=== PATIENT | male | born 1945 | race Caucasian/White ===

== ENCOUNTER 2016-09-10 12:33 | Inpatient (IN) | payer OTHER ==
[~2016-09-10] VITALS: Ht 172.7 cm; Wt 60.8 kg
--- NOTE | 2016-09-10 12:33 | NUR ---
Pt sent by Dr Goel from dialysis ctr for fever, no dialysis today. Placed on monitor. Awaiting md order.
--- NOTE | 2016-09-10 12:45 | NUR ---
rfa #18 iv access. blood sample collected sent to lab
[2016-09-10 13:11] LABS: BASOPHILS # (AUTO) 0.1 /CMM (0.0-0.2); BASOPHILS % (AUTO) 0.7 % (0.0-2.0); EOSINOPHILS # (AUTO) 0.1 /CMM (0.0-0.7); EOSINOPHILS % (AUTO) 0.6 % (0.0-6.0); HEMATOCRIT 32 % (39-51); HEMOGLOBIN 10.9 g/dL (13.5-17.5); LYMPHOCYTES # (AUTO) 0.4 /CMM (0.8-4.8); MEAN CORPUSCULAR HEMOGLOBIN 33 PG (26.0-33.0); MEAN CORPUSCULAR HGB CONC 34 g/dl (31.0-36.0); MEAN CORPUSCULAR VOLUME 98 fL (80-96); MONOCYTES # (AUTO) 0.4 /CMM (0.1-1.30); MONOCYTES % (AUTO) 3.8 % (2.0-12.0); NEUTROPHILS # (AUTO) 9.4 /CMM (1.8-8.9); NEUTROPHILS % (AUTO) 90.9 % (43.0-81.0); PLATELET COUNT (AUTO) 149 /CMM (150-450); RED BLOOD CELL COUNT(AUTO) 3.28 MIL/uL (4.5-6.0); WHITE BLOOD COUNT (AUTO) 10.4 K/uL (4.3-11.0)
[2016-09-10] MEDS ORDERED: LOSA100T15 PO (13:23)
[2016-09-10] MEDS ORDERED: SEVE800T8 PO (13:23)
[2016-09-10] MEDS ORDERED: METO50TA3 PO (13:23)
[2016-09-10] MEDS ORDERED: NIFE90TA37 PO (13:23)
[2016-09-10 13:29] LABS: INR 1.05 (0.87-1.13); PROTHROMBIN TIME 10.9 SECS (9.5-12.7); TROPONIN I 0.061 ng/mL (0.00-0.056)
[2016-09-10 13:32] LABS: ALBUMIN 3.3 g/dL (3.4-5.0); BILIRUBIN,DIRECT 0.2 mg/dL (0.0-0.2); BILIRUBIN,TOTAL 0.9 mg/dL (0.2-1.0); CALCIUM, SERUM 8.4 mg/dL (8.5-10.1); LACTIC ACID 1.6 mmol/L (0.4-2.0); POTASSIUM 5.1 mmol/L (3.5-5.1)
[2016-09-10 13:35] LABS: CREATININE 12.7 mg/dL (0.6-1.3)
--- NOTE | 2016-09-10 13:42 | NUR ---
PAGED DR MAGUE ABURTO CLINICAL PARTNER GREY GOODS MARKER FOR DR NYDIA BARNETT
[2016-09-10] MEDS ORDERED: IV SET PRIMARY PUMP SET 1 EA INFUS.SET MC ONE ×2 (13:47→21:19)
[2016-09-10] MEDS ORDERED: PIPERACILLIN /TAZOBACTAM 3.375 G VIAL IV ONE (13:47)
--- NOTE | 2016-09-10 13:58 | NUR ---
REPORT GIVEN TO EUN ENRIQUEZ FOR MS [id number]
[2016-09-10] MEDS ORDERED: VANCOMYCIN 1 GM in IV D5W 250 ML IV ONE ×2 (14:00→21:00)
[2016-09-10] MEDS ORDERED: PIPERACILLIN /TAZOBACTAM 3.375 G in IV D5W 50 ML IV ONE (14:00)
--- NOTE | 2016-09-10 14:00 | NUR ---
Dr Bermeo at bedside for eval.
--- NOTE | 2016-09-10 14:04 | NUR ---
pt still not able to provide urine sample dialysis pt aware.
--- NOTE | 2016-09-10 14:14 | NUR ---
TRANSFER PT TO [facility] VIA OFE BECKETT
--- NOTE | 2016-09-10 14:23 | NUR ---
IV ABX VANCO AND ZOSYN REASSESSMENT NOT DONE TRANSFUSING DURING TRANSFER TO FLOOR
[2016-09-10 14:40] VITALS: BP 136/83
--- NOTE | 2016-09-10 14:40 | NUR ---
telegraph service clerkadmissions advisor notes Admitted a 70 years old male patient. Patient is alert and oriented x4, verbally responsive and able to make needs known. IV intact and patent with ATB from ER still infusing. Perm cath on the RUC dressing intact. AV fistula on the left forearm. Informed Dr cotton regarding admission orders, diet and med recon and made aware. Vital signs checked and recorded. Patient is ambulatory. Kept patient clean and comfortable in bed, call light with in patient reach, will continue to monitor accordingly. On tele monitor SR heart rate of 71. No complaint of pain or discomfort at this time. on Room air and tolerated well.
[2016-09-10 16:00] VITALS: BP 136/63
--- NOTE | 2016-09-10 19:12 | NUR ---
ms rn closing notes All needs provided, attended, and anticipated. Kept patient clean and comfortable in bed, call light with in patient reach, will continue to monitor accordingly. Endorsed to next shift RN to continue care.
--- NOTE | 2016-09-10 19:27 | NUR ---
MS RN OPENING NOTES: PATIENT IN BED, AOX4, ON ROOM AIR, BREATHING EVEN AND UNLABORED. APPEARS CALM AND IN NO DISTRESS, STATES THAT HE WANTS TO SLEEP. PIV OVER RFA G 18 INTACT AND PATENT TO FLUSH. PATIENT ALSO HAS A RCW PERMACATH WITH CLEAN AND INTACT DRESSING. PROVIDED FOR COMFORT AND SAFETY. CALL LIGHT WITHIN REACH. WILL CONT TO MONITOR.
--- NOTE | 2016-09-10 19:50 | NUR ---
RN NOTES: PATIENT'S TEMP : 102.9, BP ELEVATED 175/82. IN BED, COOLING MEASURES INITIATED.
[2016-09-10 20:00] VITALS: BP 175/82
--- NOTE | 2016-09-10 20:00 | NUR ---
RN NOTES: PAGED VIVIAN, DR MAGUE ABURTO FOR PATIENT'S TEMP OF 102.9 AND ELEVATED BP AT 175/82. AWAITING CALL BACK.
[2016-09-10] MEDS ORDERED: hydrALAZINE HCL 50 MG TABLET PO PRN (20:30)
--- NOTE | 2016-09-10 20:45 | NUR ---
RN NOTES: DR PAGED DR MAGUE ABURTO AGAIN TO CONFIRM ADMITTING ORDERS (TO [facility]), NEW ORDERS TO RESTART HOME MEDICATIONS GIVEN, AND AM LABS FOR CBC, BMP, MG, PHOS. NOTED AND CARRIED OUT.
[2016-09-10] MEDS ORDERED: FEE PK DOSING 1 MIN EA MC ONE (20:51)
[2016-09-10] MEDS: ACETAMINOPHEN 325 MG TABLET PO PRN (20:53)
[2016-09-10] MEDS ORDERED: VANCOMYCIN 500 MG in IV D5W 100 ML IV PRN (21:00)
--- NOTE | 2016-09-10 21:00 | NUR ---
RN NOTES: PRN TYLENOL 650 MG PO AND HYDRALAZINE 50 MG PO PRN GIVEN FOR ELEVATED TEMP AND BP. ICE PACKS APPLIED WELL. WILL CONT TO MONITOR.
[2016-09-10] MEDS ORDERED: IV NS 0.9% 250 ML IV ONE (21:19)
[2016-09-10] MEDS ORDERED: SECONDARY IV SET 1 EA INFUS.SET MC ONE (21:19)
[2016-09-10] MEDS: PIPERACILLIN /TAZOBACTAM 2.25 G in IV D5W 50 ML IV SCH (21:50)
[2016-09-10 23:00] VITALS: BP 137/65
--- NOTE | 2016-09-10 23:00 | NUR ---
RN NOTES: PATIENT NOTED TO HAVE URINATED ON THE BED, HOWEVER, HE CLAIMS THAT HE IS CONTINENT, AND THAT HE JUST WOKE UP. EXPLAINED TO HIM THAT URINE SAMPLE MUST BE COLLECTED. VS RECHECKED: TEMP: 98.1, BP: 137/65, HR: 79, O2 SAT: 94% ON ROOM AIR. BEDBATH RENDERED, BUT PATIENT INSISTED ON WEARING SOILED UNDERWEAR.
[2016-09-11 03:00] VITALS: BP 135/62
--- NOTE | 2016-09-11 03:09 | NUR ---
RN NOTES: RECHECKED VS: TEMP: 97.8, BP: 135/62. PATIENT APPEARS CALM AND IN NO DISTRESS. NOTED SOME BLOODY RESIDUE ON PERMACATH DRESSING. REPLACED CENTRAL LINE DRESSING BY STERILE TECHNIQUE. WILL CONT TO MONITOR.
[2016-09-11] MEDS: PIPERACILLIN /TAZOBACTAM 2.25 G in IV D5W 50 ML IV SCH ×3 (04:57→21:07)
--- NOTE | 2016-09-11 06:20 | NUR ---
MS RN CLOSING NOTES: PATIENT IN BED, AOX4, ON ROOM AIR, BREATHING EVEN AND UNLABORED. APPEARS CALM AND IN NO DISTRESS. PIV OVER RFA G18 INTACT AND PATENT TO FLUSH. PATIENT HAS RCW PERMACATH WITH CLEAN INTACT DRESSING. L UPPER ARM AV FISTULA POSITIVE FOR THRILLS. DUE MEDS GIVEN. MONITORED FOR FEVER AND OTHER SIGNS OF INFECTION, VS REMAINS STABLE AT THIS TIME. PROVIDED FOR COMFORT AND SAFETY. BED IN LOWEST AND LOCKED POSITION, SIDERAILS UP X3. WILL ENDORSE TO AM RN FOR SUMI.
--- NOTE | 2016-09-11 07:54 | NUR ---
MS RN INITIAL NOTE REPORT RECEIVED AT THE BEDSIDE. PATIENT IS RESTING COMFORTABLY IN BED. NO SOB OR DISTRESS NOTED AT THIS TIME. PATIENT DENIES PAIN. BED IN A LOW POSITION, CALL LIGHT WITHIN PATIENT REACH. WILL CONTINUE TO MONITOR.
[2016-09-11 07:59] LABS: CALCIUM, SERUM 7.9 mg/dL (8.5-10.1); MAGNESIUM 2.2 mg/dL (1.8-2.4); PHOSPHORUS 4.3 mg/dL (2.5-4.9); POTASSIUM 4.9 mmol/L (3.5-5.1)
[2016-09-11 08:00] VITALS: BP 145/66
[2016-09-11 08:03] LABS: CREATININE 11.8 mg/dL (0.6-1.3)
[2016-09-11 08:07] LABS: BASOPHILS % (AUTO) 0.7 % (0.0-2.0); EOSINOPHILS % (AUTO) 0.3 % (0.0-6.0); HEMATOCRIT 34 % (39-51); HEMOGLOBIN 11.2 g/dL (13.5-17.5); LYMPHOCYTES # (AUTO) 0.3 /CMM (0.8-4.8); MEAN CORPUSCULAR HEMOGLOBIN 32 PG (26.0-33.0); MEAN CORPUSCULAR HGB CONC 33 g/dl (31.0-36.0); MEAN CORPUSCULAR VOLUME 96 fL (80-96); MONOCYTES # (AUTO) 0.4 /CMM (0.1-1.30); MONOCYTES % (AUTO) 5.7 % (2.0-12.0); NEUTROPHILS # (AUTO) 5.7 /CMM (1.8-8.9); NEUTROPHILS % (AUTO) 88.3 % (43.0-81.0); PLATELET COUNT (AUTO) 144 /CMM (150-450); RED BLOOD CELL COUNT(AUTO) 3.52 MIL/uL (4.5-6.0); WHITE BLOOD COUNT (AUTO) 6.4 K/uL (4.3-11.0)
--- NOTE | 2016-09-11 08:17 | NUR ---
MS RN NOTES CALLED AND SPOKE TO AUGUSTA THE DIALYSIS NURSE. HE STATES THAT THE PATIENT WILL BE HAVING DIALYSIS TODAY AND THAT BP MEDS SHOULD BE HELD.
[2016-09-11] MEDS: METOPROLOL TARTRATE 50 MG TABLET PO SCH ×2 (08:21→16:25)
[2016-09-11] MEDS: LOSARTAN POTASSIUM 50 MG TABLET PO SCH (08:21)
[2016-09-11] MEDS: NIFEdipine XL (30MG) 30 MG TAB PO SCH (08:22)
[2016-09-11] MEDS: SEVELAMER CARBONATE 800 MG TABLET PO SCH ×3 (08:31→16:32)
[2016-09-11] MEDS: ACETAMINOPHEN 325 MG TABLET PO PRN (14:21)
--- NOTE | 2016-09-11 15:20 | NUR ---
MS RN NOTES CALLED DR GANNON'S OFFICE. PATIENT STATES THAT HE HAS 8/10 PAIN IN THE LOWER LEGS AND BACK. ALL THAT IS AVAILABLE FOR THE PATIENT RIGHT NOW IS TYLENOL WHICH WAS ALREADY GIVEN. LEFT A MESSAGE FOR THE MD. WILL FOLLOW UP.
[2016-09-11 16:00] VITALS: BP 104/50
--- NOTE | 2016-09-11 16:26 | NUR ---
MS RN NOTES DID NOT ADMIN LOPRESSOR DUE TO LOW BP AND PATIENT DUE FOR DIALYSIS.
[2016-09-11] MEDS: LACTOBACILLUS RHAMNOSUS GG 1 EACH CAP.SPRINK PO SCH (16:32)
[2016-09-11] MEDS ORDERED: VANCOMYCIN 1 GM in IV D5W 250 ML IV ONE (17:00)
--- NOTE | 2016-09-11 17:15 | NUR ---
MS HAQ NOTES RECEIVED A CALL FROM PATIENT INSURANCE. PATIENT NEEDS A VASCULAR CONSULT. WILL CALL MD. Addendum: 09/11/16 at 1723 by ADAM BLOOM RN CALLED NEPHROLOGY GROUP. DR BRAR IS BINDERY OPERATOR. OFFICE STATES THEY HAVE PAGED THE DOCTOR. AWAITING RETURN CALL.
--- NOTE | 2016-09-11 18:08 | NUR ---
MS RN NOTES CALLED THE NEPHROLOGY GROUP AGAIN AND TRIED TO REACH THE GOVERNMENT DOCUMENTS LIBRARIAN MD WHO IS NOW DR FLORES. WAITING FOR CALL BACK FROM .
[2016-09-11] MEDS ORDERED: SECONDARY IV SET 1 EA INFUS.SET MC ONE (18:51)
--- NOTE | 2016-09-11 19:15 | NUR ---
MS RN CLOSING NOTES WAS UNABLE TO REACH NEPHROLOGY GROUP FOR ORDERS. PATIENT IN BED, NO SOB OR DISTRESS, DENIES PAIN. PATIENT IS FINISHING HD. WARE TESTER TO HANG PRN VANCO. BED IN A LOW POSITION, CALL LIGHT WITHIN PATIENT REACH. ENDORSED TO MILDRED FOR SUMI, AND FOLLOW UP WITH DR FLORES ON PAIN MEDICATIONS AND VASCULAR CONSULT.
--- NOTE | 2016-09-11 19:25 | NUR ---
RN NOTE; RECEIVED PT IN BED AWAKE AND ALERT W/ FAMILY AT THE BED SIDE. HD IN PROCESS USING BAL SHUNT. PER HD NURSE BAL SHUNT FUNCTIONAL W/ NO COMPLICATIONS. AWAITING FOR HD TO BE COMPLETED TO ADMINISTER VANCO. DENIED ANY PAIN OR DISCOMFORT. R CHEST CATH IN PLACE AND INTACT. NEEDS ATTENDED. CALL LIGHT WITHIN REACH. WILL CONT TO MONITOR
[2016-09-11 20:00] VITALS: BP 162/68
[2016-09-11 20:56] VITALS: BP 144/65
[2016-09-11] MEDS: ATORVASTATIN 10 MG TABLET PO SCH (21:05)
[2016-09-12] MEDS: PIPERACILLIN /TAZOBACTAM 2.25 G in IV D5W 50 ML IV SCH ×3 (05:05→20:31)
--- NOTE | 2016-09-12 06:37 | NUR ---
RN NOTE; PT IN BED SLEEPING ARISES EASILY. BREATHING EVENLY. NO SOB. NO DISTRESS. SKIN WARM AND DRY. BAL SHUNT INTACT W/ NO BLEEDING . NO C/O PAIN OR DISCOMFORT. NEEDS ATTENDED . ASSISTED W/ ADLS. CALL LIGHT WITHIN REACH, WILL CONT TO MONITOR AND WILL ENDORSE TO AM SHIFT FOR SUMI,
[2016-09-12 07:38] LABS: BASOPHILS % (AUTO) 0.2 % (0.0-2.0); EOSINOPHILS % (AUTO) 0.8 % (0.0-6.0); HEMATOCRIT 32 % (39-51); HEMOGLOBIN 11.3 g/dL (13.5-17.5); LYMPHOCYTES # (AUTO) 0.4 /CMM (0.8-4.8); LYMPHOCYTES % (AUTO) 10.3 % (20.0-44.0); MEAN CORPUSCULAR HEMOGLOBIN 36 PG (26.0-33.0); MEAN CORPUSCULAR HGB CONC 35 g/dl (31.0-36.0); MEAN CORPUSCULAR VOLUME 103 fL (80-96); MONOCYTES # (AUTO) 0.4 /CMM (0.1-1.30); MONOCYTES % (AUTO) 9.6 % (2.0-12.0); NEUTROPHILS # (AUTO) 3.2 /CMM (1.8-8.9); NEUTROPHILS % (AUTO) 79.1 % (43.0-81.0); PLATELET COUNT (AUTO) 134 /CMM (150-450); RDW COEFFICIENT OF VARIATION 13.1 (11.5-15.0); RED BLOOD CELL COUNT(AUTO) 3.15 MIL/uL (4.5-6.0); WHITE BLOOD COUNT (AUTO) 4.1 K/uL (4.3-11.0)
[2016-09-12 08:00] VITALS: BP_SYST 123; BP_SYST 149; BP_DIAS 64; BP_DIAS 69
[2016-09-12 08:10] LABS: ALBUMIN 2.6 g/dL (3.4-5.0); BILIRUBIN,TOTAL 0.6 mg/dL (0.2-1.0); CALCIUM, SERUM 7.8 mg/dL (8.5-10.1); MAGNESIUM 2.2 mg/dL (1.8-2.4); PHOSPHORUS 3.7 mg/dL (2.5-4.9); POTASSIUM 4.4 mmol/L (3.5-5.1); TOTAL PROTEIN, SERUM 6.3 g/dL (6.4-8.2)
--- NOTE | 2016-09-12 08:10 | NUR ---
RN Notes Still sleeping, easily arousable. No complain of pain. On RA saturating at 97% with no SOB. Afebrile. With AV shunt on left upper arm with palpable thrill noted. no bleeding. With HD access on right chest wall with dressing intact. with IV access on right forearm gg 18 patent and intact. no complain at this time.
[2016-09-12 08:11] LABS: CREATININE 10.5 mg/dL (0.6-1.3)
[2016-09-12] MEDS: ASPIRIN 81 MG TAB.CHEW PO SCH (09:21)
[2016-09-12] MEDS: LACTOBACILLUS RHAMNOSUS GG 1 EACH CAP.SPRINK PO SCH ×2 (09:21→16:19)
[2016-09-12] MEDS: LOSARTAN POTASSIUM 50 MG TABLET PO SCH (09:21)
[2016-09-12] MEDS: METOPROLOL TARTRATE 50 MG TABLET PO SCH ×2 (09:21→16:20)
[2016-09-12] MEDS: NIFEdipine XL (30MG) 30 MG TAB PO SCH (09:22)
[2016-09-12] MEDS: SEVELAMER CARBONATE 800 MG TABLET PO SCH ×5 (09:22→20:32)
--- NOTE | 2016-09-12 15:39 | NUR ---
MS RN Notes Spoke with Dr Bueno with verbal order to do procedure consent for Perma cath removal and prepare lidocaine 1 % noted and carried out.
[2016-09-12 16:00] VITALS: BP 153/68
[2016-09-12] MEDS ORDERED: LIDOCAINE 1% INJ 50 ML MDV IJ ONE (16:00)
--- NOTE | 2016-09-12 16:10 | NUR ---
RN Notes Verified patient's understanding on the risk and benefit of removing perma cath as explained by DR Bueno, verbalized understanding. Consent for the procedure secured.
[2016-09-12] MEDS: ACETAMINOPHEN 325 MG TABLET PO PRN (16:20)
--- NOTE | 2016-09-12 17:10 | NUR ---
RN Notes Permacath removed by Dr Bueno with pressure dressing applied to right upper chest wall. no bleeding noted. will cont to monitor.
--- NOTE | 2016-09-12 18:43 | NUR ---
RN Notes Resting well with no complain at this time. With dressing on right upper chest wall s/p removal of perma cath, dry and intact. Needs anticipated. no untoward symptom noted. will endorse to police shift commander nurse for the continuity of care.
--- NOTE | 2016-09-12 19:23 | NUR ---
MS RN OPENING NOTES: PATIENT IN BED, AOX4, ON ROOM AIR, BREATHING EVEN AND UNLABORED. DENIES PAIN AT THIS TIME, BUT STATES THAT HE STILL FEELS WEAK AND NEEDS REST. ENCOURAGED PATIENT TO EAT DINNER. PATIENT HAS CLEAN AND INTACT DRESSING OVER RCW. PIV OVER RFA G 18 INTACT AND PATENT TO FLUSH. BAL AV FISTULA WITH PALPABLE THRILL. PROVIDED FOR COMFORT AND SAFETY. WILL CONT TO MONITOR.
[2016-09-12 20:00] VITALS: BP 101/63
--- NOTE | 2016-09-12 20:32 | NUR ---
RN NOTES: RENVELA 2400 MG ONLY GIVEN NOW PATIENT HAS JUST FINISHED EATING.
[2016-09-12] MEDS ORDERED: SECONDARY IV SET 1 EA INFUS.SET MC ONE (20:33)
[2016-09-12 20:35] VITALS: BP 101/63
[2016-09-12] MEDS: ATORVASTATIN 10 MG TABLET PO SCH (21:43)
[2016-09-13 04:00] VITALS: BP 105/55
[2016-09-13] MEDS: PIPERACILLIN /TAZOBACTAM 2.25 G in IV D5W 50 ML IV SCH ×3 (04:20→22:14)
--- NOTE | 2016-09-13 06:51 | NUR ---
MS RN CLOSING NOTES: PATIENT IN BED, AOX4, ASLEEP BUT EASILY AWAKENED BY NAME BEING CALLED. ON ROOM AIR, BREATHING EVEN AND UNLABORED. PIV OVER RFA G18 INTACT AND PATENT TO FLUSH. DUE MEDS GIVEN. PROVIDED FOR COMFORT AND SAFETY. NO ACUTE CHANGE IN CONDITION NOTED THROUGH NIGHT. PROVIDED FOR COMFORT AND SAFETY. BED IN LOWEST AND LOCKED POSITION, SIDERAILS UP X3. WILL ENDORSE TO AM RN FOR SUMI.
[2016-09-13 08:00] VITALS: BP 108/52
--- NOTE | 2016-09-13 08:20 | NUR ---
MS/RN OPENING NOTE PT. IS SITTING UP IN BED EATING BREAKFAST. PT. IS A&OX4. NO S/S OF DISTRESS, NO SOB, BREATHING EVENLY AND UNLABORED. PT. HAS A WALKER NEAR BEDSIDE. SIGN ON WALL FOR NO BLOOD PRESSURE, AND BLOOD DRAWS ON LEFT ARM. PT. BED IS IN LOW POSITION, 2 SIDE RAILS UP, CALL LIGHT WITHIN REACH, AND ALL NEEDS ARE ATTENDED TO.
[2016-09-13 08:48] LABS: POTASSIUM 4.4 mmol/L (3.5-5.1)
[2016-09-13] MEDS: METOPROLOL TARTRATE 50 MG TABLET PO SCH ×2 (09:00→16:37)
[2016-09-13] MEDS: LOSARTAN POTASSIUM 50 MG TABLET PO SCH (09:00)
[2016-09-13] MEDS: NIFEdipine XL (30MG) 30 MG TAB PO SCH (09:00)
[2016-09-13 09:22] LABS: CREATININE 12.5 mg/dL (0.6-1.3)
[2016-09-13] MEDS: ASPIRIN 81 MG TAB.CHEW PO SCH (09:22)
[2016-09-13] MEDS: LACTOBACILLUS RHAMNOSUS GG 1 EACH CAP.SPRINK PO SCH ×2 (09:22→16:37)
[2016-09-13] MEDS: SEVELAMER CARBONATE 800 MG TABLET PO SCH ×2 (13:48→16:37)
[2016-09-13 16:00] VITALS: BP 121/62
--- NOTE | 2016-09-13 16:45 | NUR ---
MS/RN DAILY WEIGHT PT. WEIGHT ON ADMISSION WAS 141.44LBS. REASSESSED, PT. WEIGHT IS 132.6 LBS, AFTER BED WAS ZEROED OUT WITH PT. OUT OF BED.
--- NOTE | 2016-09-13 19:50 | NUR ---
MS/RN CLOSING NOTE PT. IS LYING IN BED AWAKE, A&OX4. NO S/S OF DISTRESS, NO SOB, BREATHING EVENLY, AND UNLABORED. PT. LAST DAILY WEIGHT WAS 132.6 LBS. HEMODIALYSIS WAS PROVIDED TODAY AT 0900, 1.5 LITERS REMOVED WITHOUT COMPLICATIONS, USING THE LEFT UPPER ARM AV FISTULA. PT. HAS A WALKER NEAR BEDSIDE. IV FLUIDS RUNNING TO KEEP VEIN OPEN AT 5ML/HR ON RIGHT FOREARM. RENAL SOURCE BOOST SHAKE ORDERED FOR SUPPLEMENTATION PER DIETARY CONSULT. PT. REQUESTED TO HAVE DOOR CLOSED WHILE HE IS IN THE ROOM. BED IS IN LOW POSITION, 2 SIDE RAILS UP, CALL LIGHT WITHIN REACH, AND ALL NEEDS WERE TO ATTENDED TO. WILL ENDORSE REPORT TO SHEAR SCRAPMAN NURSE.
--- NOTE | 2016-09-13 19:55 | NUR ---
MS/PROSPECTING DRILLER; RECEIVED PT REPORTS FROM DAY SHIFT RN . AT THIS TIME PT IN BED AWAKKE BUT QUIET, BREATHING NON LABORED. HL ON RFA INTACT. AV SHUNT ON BAL. NO MENTION OF PAIN. BED ON LOWER POSITION AND LOCKED FOR SAFETY. UPPER PART OF BED SIDE RAILS ARE UP FOR SAFETY. CONTINUE TO MONITOR . CALL LIGHT WITHIN REACH.
[2016-09-13 20:00] VITALS: BP 124/59
[2016-09-13] MEDS ORDERED: SECONDARY IV SET 1 EA INFUS.SET MC ONE (22:07)
[2016-09-13] MEDS: ATORVASTATIN 10 MG TABLET PO SCH (22:08)
[2016-09-14] MEDS: PIPERACILLIN /TAZOBACTAM 2.25 G in IV D5W 50 ML IV SCH (04:15)
[2016-09-14 06:53] LABS: CALCIUM, SERUM 7.6 mg/dL (8.5-10.1); POTASSIUM 4.6 mmol/L (3.5-5.1)
[2016-09-14 07:00] LABS: CREATININE 11.2 mg/dL (0.6-1.3)
--- NOTE | 2016-09-14 07:00 | NUR ---
MS/OUTBOUND TELEMARKETER; SLEPT FAIRLY. DENIES PAIN. BREATHING NON LABORED. CONTINUE TO MONITOR. CALL LIGHT WITHIN REACH. WILL ENDORSE TO THE DAY SHIFT NURSE.
--- NOTE | 2016-09-14 07:30 | NUR ---
MS/RN OPENING NOTE PT. IS AWAKE IN BED. A&OX4. NO S/S OF DISTRESS, NO SOB, BREATHING EVENLY AND UNLABORED. PT. HAS A WALKER NEAR BEDSIDE. SIGN ON WALL FOR NO BLOOD PRESSURE, AND BLOOD DRAWS ON LEFT ARM. PT. BED IS IN LOW POSITION, 2 SIDE RAILS UP, CALL LIGHT WITHIN REACH, AND ALL NEEDS ARE ATTENDED TO.
[2016-09-14 08:00] VITALS: BP 147/63
[2016-09-14] MEDS ORDERED: RENAL NOVASOURCE (8OZ) 1 EA BOX PO SCH (09:00)
[2016-09-14] MEDS: METOPROLOL TARTRATE 50 MG TABLET PO SCH (09:57)
[2016-09-14] MEDS: ASPIRIN 81 MG TAB.CHEW PO SCH (09:57)
[2016-09-14] MEDS: LACTOBACILLUS RHAMNOSUS GG 1 EACH CAP.SPRINK PO SCH (09:58)
[2016-09-14] MEDS: LOSARTAN POTASSIUM 50 MG TABLET PO SCH (09:58)
[2016-09-14] MEDS: NIFEdipine XL (30MG) 30 MG TAB PO SCH (09:59)
[2016-09-14] MEDS: SEVELAMER CARBONATE 800 MG TABLET PO SCH (09:59)
--- NOTE | 2016-09-14 14:59 | NUR ---
MS/WELL DRILLER PT. LEFT THE HOSPITAL WITH FRIEND ASH QUINTEROS. WAS IN STABLE CONDITION. PROVIDED DISCHARGE INSTRUCTIONS, AND LIST OF MEDICATIONS TO TAKE HOME. NEXT HEMODIALYSIS VISIT WILL BE IN TOMORROW ARRANGED BY DR. FERGUSON, PT. VERBALIZED UNDERSTANDING.
[2016-09-14 16:00] VITALS: BP 128/73
== END 2016-09-14 15:00 | disposition home or self-care (01) | DRG 280 ==
LOC: ER 12:36 → MED 14:21
PROVIDERS: ADMIT Internal Medicine Nephrology; ATTEND Internal Medicine Nephrology
PROC: 02PYX3Z Removal of Infusion Device from Great Vessel, External Approach (ICD-10-PCS; principal; 2016-09-12)
DX: T80.211A Bloodstream infection due to central venous catheter, initial encounter (principal); I21.4 Non-ST elevation (NSTEMI) myocardial infarction; N18.6 End stage renal disease; I50.33 Acute on chronic diastolic (congestive) heart failure; A41.02 Sepsis due to Methicillin resistant Staphylococcus aureus; I13.2 Hypertensive heart and chronic kidney disease with heart failure and with stage 5 chronic kidney disease, or end stage renal disease; I50.9 Heart failure, unspecified; Z99.2 Dependence on renal dialysis; Y84.1 Kidney dialysis as the cause of abnormal reaction of the patient, or of later complication, without mention of misadventure at the time of the procedure; Y92.129 Unspecified place in nursing home as the place of occurrence of the external cause; M47.814 Spondylosis without myelopathy or radiculopathy, thoracic region; D64.9 Anemia, unspecified
CPT/HCPCS: 36415; 71010-TC; 80048-TC; 80053-TC; 80076-TC; 80202-TC; 83605-TC; 83735-TC; 84100-TC; 84484-TC; 85025-TC; 85730-TC; 87040-TC; 87081-TC; 90935-TC; 93307-TC; A4606; A6402; J2543; J3370; J3490; J7050; J7060; Z7610

== ENCOUNTER 2017-05-09 09:12 | Inpatient (IN) | payer OTHER ==
[~2017-05-09] VITALS: Ht 170.2 cm; Wt 59.9 kg
[~2017-05-09 09:12] MED LIST: LOSA100T15 PO; METO50TA16 PO; NIFE90TA37 PO; SEVE800T8 PO
[2017-05-09 10:08] LABS: BASOPHILS # (AUTO) 0.2 /CMM (0.0-0.2); BASOPHILS % (AUTO) 2.2 % (0.0-2.0); EOSINOPHILS # (AUTO) 0.1 /CMM (0.0-0.7); EOSINOPHILS % (AUTO) 1.7 % (0.0-6.0); HEMATOCRIT 30 % (39-51); HEMOGLOBIN 10.5 g/dL (13.5-17.5); LYMPHOCYTES # (AUTO) 0.5 /CMM (0.8-4.8); LYMPHOCYTES % (AUTO) 6.3 % (20.0-44.0); MEAN CORPUSCULAR HEMOGLOBIN 34 PG (26.0-33.0); MEAN CORPUSCULAR HGB CONC 35 g/dl (31.0-36.0); MEAN CORPUSCULAR VOLUME 95 fL (80-96); MONOCYTES # (AUTO) 0.5 /CMM (0.1-1.30); MONOCYTES % (AUTO) 6.4 % (2.0-12.0); NEUTROPHILS # (AUTO) 6.2 /CMM (1.8-8.9); NEUTROPHILS % (AUTO) 83.4 % (43.0-81.0); PLATELET COUNT (AUTO) 174 /CMM (150-450); RDW COEFFICIENT OF VARIATION 12.6 (11.5-15.0); RED BLOOD CELL COUNT(AUTO) 3.12 MIL/uL (4.5-6.0); WHITE BLOOD COUNT (AUTO) 7.5 K/uL (4.3-11.0)
[2017-05-09 10:18] LABS: CARBON DIOXIDE 29 mmol/L (21-32); CHLORIDE 100 mmol/L (98-107); GLUCOSE 144 mg/dL (74-106); POTASSIUM 4.9 mmol/L (3.5-5.1); SODIUM SERUM 136 mmol/L (136-145); UREA NITROGEN, BLOOD 50 mg/dL (7-18)
[2017-05-09 10:23] LABS: CREATININE 8.1 mg/dL (0.6-1.3)
[2017-05-09 10:24] LABS: ALANINE AMINOTRANSFERASE 17 U/L (12-78); ALBUMIN 3.6 g/dL (3.4-5.0); ALKALINE PHOSPHATASE 114 U/L (46-116); ASPARTATE AMINOTRANSFERASE 23 U/L (15-37); BILIRUBIN,DIRECT 0.1 mg/dL (0.0-0.2); BILIRUBIN,TOTAL 0.5 mg/dL (0.2-1.0); TOTAL PROTEIN, SERUM 7.7 g/dL (6.4-8.2)
[2017-05-09 10:26] LABS: TROPONIN I 0.054 ng/mL (0.00-0.056)
[2017-05-09 10:40] LABS: PROTHROMBIN TIME 10.4 SECS (9.5-12.7)
[2017-05-09 10:56] LABS: APPEARANCE,URINE CLEAR (CLEAR); BILIRUBIN,URINE NEGATIVE (NEGATIVE); BLOOD, URINE 1+ Ery/uL (NEGATIVE); COLOR,URINE YELLOW (YELLOW); KETONES,URINE NEGATIVE (NEGATIVE); LEUKOCYTE ESTERASE ,URINE NEGATIVE (NEGATIVE); NITRITE, URINE NEGATIVE (NEGATIVE); PH,URINE 8.5 (5.0-8.0); PROTEIN,URINE 2+ mg/dl (NEGATIVE); UGLUCOSE NEGATIVE (NEGATIVE); UROBILINOGEN,URINE 0.2 EU/dL (0.2)
[2017-05-09 10:58] LABS: BACTERIA,URINE Rare /HPF (None Seen); SQUAMOUS EPITHELIAL CELL,UR Few /HPF (None Seen); WBC,URINE 0-2 /HPF (0-3)
[2017-05-09] MEDS ORDERED: LEVOFLOXACIN 750 MG /D5W 150ML 150 ML IV ONE (11:22)
[2017-05-09] MEDS ORDERED: LEVOFLOXACIN 750 MG /D5W 150ML PIGGYBACK IV ONE (11:30)
[2017-05-09 11:45] VITALS: BP 169/89
[2017-05-09] MEDS ORDERED: MAGNESIUM HYDROXIDE 30 ML UDC PO PRN (14:00)
[2017-05-09] MEDS ORDERED: Z GUARD REMEDY 2 OZ OINT TP PRN (14:00)
[2017-05-09] MEDS ORDERED: ZOLPIDEM TARTRATE 5 MG TABLET PO PRN (14:00)
[2017-05-09] MEDS ORDERED: ACETAMINOPHEN 325 MG TABLET PO PRN (14:00)
[2017-05-09] MEDS ORDERED: MAG HYDROX/AL HYDROX/SIMETH 30 ML UDC PO PRN (14:00)
[2017-05-09] MEDS ORDERED: MORPHINE SULFATE INJ 2 MG/ML DISP.SYRIN IV PRN (14:00)
[2017-05-09] MEDS ORDERED: LEVOFLOXACIN 750 MG /D5W 150ML 750 MG in PREMIX 1 EA IV ONE (14:01)
[2017-05-09 15:42] LABS: IRON, SERUM 22 ug/dl (50-175); TOTAL IRON BINDING CAPACITY 224 ug/dl (250-450)
[2017-05-09] MEDS: HYDROCODONE/APAP 5/325MG 1 EACH TABLET PO PRN (15:58)
[2017-05-09 16:13] VITALS: BP 176/79
[2017-05-09 20:27] VITALS: BP 166/75
[2017-05-09] MEDS ORDERED: MORPHINE SULFATE INJ 4 MG/ML DISP.SYRIN ONE (21:30)
[2017-05-09] MEDS ORDERED: NIFEdipine XL (30MG) 30 MG TAB PO ONE (21:50)
[2017-05-09] MEDS ORDERED: NIFEdipine XL 60 MG TAB PO ONE (21:50)
[2017-05-09] MEDS ORDERED: METOPROLOL TARTRATE 50 MG TABLET ONE (21:51)
[2017-05-09] MEDS ORDERED: LOSARTAN POTASSIUM 50 MG TABLET ONE (21:52)
[2017-05-09] MEDS: NIFEdipine XL (30MG) 30 MG TAB PO SCH (21:54)
[2017-05-09] MEDS: METOPROLOL TARTRATE 50 MG TABLET PO SCH (21:54)
[2017-05-09] MEDS: LOSARTAN POTASSIUM 50 MG TABLET PO SCH (21:55)
[2017-05-10] VITALS (7 sets, daily range): BP systolic 96–181; BP diastolic 52–86
[2017-05-10] MEDS ORDERED: CLONIDINE HCL 0.1 MG TABLET ONE (00:35)
[2017-05-10] MEDS: CLONIDINE HCL 0.1 MG TABLET PO PRN (00:37)
[2017-05-10 08:15] LABS: BASOPHILS % (AUTO) 0.4 % (0.0-2.0); HEMATOCRIT 26 % (39-51); HEMOGLOBIN 9.6 g/dL (13.5-17.5); LYMPHOCYTES # (AUTO) 0.6 /CMM (0.8-4.8); LYMPHOCYTES % (AUTO) 9.6 % (20.0-44.0); MEAN CORPUSCULAR HEMOGLOBIN 40 PG (26.0-33.0); MEAN CORPUSCULAR HGB CONC 37 g/dl (31.0-36.0); MEAN CORPUSCULAR VOLUME 106 fL (80-96); MONOCYTES # (AUTO) 0.3 /CMM (0.1-1.30); MONOCYTES % (AUTO) 5.4 % (2.0-12.0); NEUTROPHILS % (AUTO) 84.6 % (43.0-81.0); PLATELET COUNT (AUTO) 136 /CMM (150-450); RDW COEFFICIENT OF VARIATION 13.1 (11.5-15.0); RED BLOOD CELL COUNT(AUTO) 2.44 MIL/uL (4.5-6.0); WHITE BLOOD COUNT (AUTO) 5.9 K/uL (4.3-11.0)
[2017-05-10 08:43] LABS: ALANINE AMINOTRANSFERASE 15 U/L (12-78); ALKALINE PHOSPHATASE 90 U/L (46-116); ASPARTATE AMINOTRANSFERASE 22 U/L (15-37); BILIRUBIN,TOTAL 0.4 mg/dL (0.2-1.0); CALCIUM, SERUM 7.4 mg/dL (8.5-10.1); CARBON DIOXIDE 26 mmol/L (21-32); CHLORIDE 99 mmol/L (98-107); GLUCOSE 141 mg/dL (74-106); MAGNESIUM 2.1 mg/dL (1.8-2.4); SODIUM SERUM 134 mmol/L (136-145); TOTAL PROTEIN, SERUM 6.6 g/dL (6.4-8.2); UREA NITROGEN, BLOOD 67 mg/dL (7-18)
[2017-05-10 08:48] LABS: POTASSIUM 6.4 mmol/L (3.5-5.1)
[2017-05-10 08:50] LABS: CHOLESTEROL 147 mg/dL (<200); CREATINE KINASE MB 0.3 ng/mL (0-3.6); HDL CHOLESTEROL 66 mg/dL (40-60); LDL 62 mg/dL (0-99); TRIGLYCERIDES 79 mg/dL (30-150)
[2017-05-10] MEDS: LOSARTAN POTASSIUM 50 MG TABLET PO SCH ×2 (09:00→14:52)
[2017-05-10] MEDS ORDERED: INSULIN REGULAR, HUMAN 100 UNIT/ML 10 ML VIAL SQ ONE (09:00)
[2017-05-10] MEDS ORDERED: DEXTROSE 50%-WATER 50 ML DISP.SYRIN IVP ONE (09:00)
[2017-05-10] MEDS ORDERED: Calcium Gluconate 0.465 MEQ/ML VIAL IV ONE (09:00)
[2017-05-10] MEDS: METOPROLOL TARTRATE 50 MG TABLET PO SCH ×2 (09:00→21:00)
[2017-05-10] MEDS: NIFEdipine XL (30MG) 30 MG TAB PO SCH (09:00)
[2017-05-10 09:49] LABS: BAND % (MANUAL) 1 % (0.0-5.0); LYMPHOCYTES % (MANUAL) 8 % (16-48); MONOCYTES % (MANUAL) 6 % (0-11.0); NEUTROPHILS % (MANUAL) 85 (42-76)
[2017-05-10] MEDS ORDERED: ALBUTEROL FS 2.5 MG/0.5 ML VIAL.NEB NEB ONE (09:51)
[2017-05-10] MEDS ORDERED: Calcium Gluconate 1GM/10ML 4.65 MEQ in IV D5W 50 ML IV ONE (10:00)
[2017-05-10] MEDS ORDERED: METOPROLOL TARTRATE 50 MG TABLET PO ONE (14:30)
[2017-05-10] MEDS ORDERED: ASPIRIN 81 MG TAB.CHEW PO ONE (14:30)
[2017-05-10] MEDS ORDERED: AMIODARONE 900 MG in IV D5W 482 ML IV PRN (17:30)
[2017-05-10] MEDS ORDERED: AMIODARONE 150 MG in IV D5W 100 ML IV ONE (17:30)
[2017-05-10] MEDS: SEVELAMER CARBONATE 800 MG TABLET PO SCH (18:50)
[2017-05-10] MEDS ORDERED: LEVOFLOXACIN 500 MG /D5W 100ML 500 MG in PREMIX 1 EA IV SCH (19:00)
[2017-05-10] MEDS ORDERED: IV NS 0.9% 250 ML IV PRN (21:30)
[2017-05-11] VITALS: BP_SYST 100; BP_SYST 126; BP_DIAS 59
[2017-05-11 04:00] VITALS: BP 132/63
[2017-05-11 07:20] LABS: BASOPHILS % (AUTO) 0.2 % (0.0-2.0); EOSINOPHILS # (AUTO) 0.1 /CMM (0.0-0.7); EOSINOPHILS % (AUTO) 1.5 % (0.0-6.0); HEMATOCRIT 29 % (39-51); HEMOGLOBIN 9.8 g/dL (13.5-17.5); LYMPHOCYTES # (AUTO) 0.9 /CMM (0.8-4.8); LYMPHOCYTES % (AUTO) 18.5 % (20.0-44.0); MEAN CORPUSCULAR HEMOGLOBIN 33 PG (26.0-33.0); MEAN CORPUSCULAR HGB CONC 34 g/dl (31.0-36.0); MEAN CORPUSCULAR VOLUME 95 fL (80-96); MONOCYTES # (AUTO) 0.4 /CMM (0.1-1.30); MONOCYTES % (AUTO) 7.1 % (2.0-12.0); NEUTROPHILS # (AUTO) 3.6 /CMM (1.8-8.9); NEUTROPHILS % (AUTO) 72.7 % (43.0-81.0); PLATELET COUNT (AUTO) 129 /CMM (150-450); RDW COEFFICIENT OF VARIATION 12.9 (11.5-15.0); RED BLOOD CELL COUNT(AUTO) 3.02 MIL/uL (4.5-6.0)
[2017-05-11 07:29] LABS: CALCIUM, SERUM 7.4 mg/dL (8.5-10.1); CARBON DIOXIDE 29 mmol/L (21-32); CHLORIDE 93 mmol/L (98-107); GLUCOSE 97 mg/dL (74-106); MAGNESIUM 2.1 mg/dL (1.8-2.4); PHOSPHORUS 4.8 mg/dL (2.5-4.9); POTASSIUM 4.5 mmol/L (3.5-5.1); SODIUM SERUM 133 mmol/L (136-145); UREA NITROGEN, BLOOD 55 mg/dL (7-18)
[2017-05-11] MEDS: HYDROCODONE/APAP 5/325MG 1 EACH TABLET PO PRN (07:53)
[2017-05-11 08:00] VITALS: BP 150/68
[2017-05-11] MEDS: METOPROLOL TARTRATE 50 MG TABLET PO SCH ×2 (09:00→21:00)
[2017-05-11] MEDS: LOSARTAN POTASSIUM 50 MG TABLET PO SCH ×2 (09:00)
[2017-05-11] MEDS: NIFEdipine XL (30MG) 30 MG TAB PO SCH ×2 (09:00→09:40)
[2017-05-11] MEDS: SEVELAMER CARBONATE 800 MG TABLET PO SCH ×3 (09:38→18:00)
[2017-05-11] MEDS: ISOSORBIDE DINITRATE (20MG) 20 MG TABLET PO SCH ×2 (11:45→17:00)
[2017-05-11 11:49] LABS: THYROID STIMULATING HORMONE 0.933 uIU/mL (0.358-3.74)
[2017-05-11 12:00] VITALS: BP 139/63
[2017-05-11] MEDS: CEFTRIAXONE 1 G in IV D5W 50 ML IV SCH (13:33)
[2017-05-11] MEDS: hydrALAZINE HCL 50 MG TABLET PO SCH ×2 (13:36→17:00)
[2017-05-11] MEDS: SOD FERRIC GLUC 125 MG in IV NS 0.9% 100 ML IV SCH (15:57)
[2017-05-11 16:00] VITALS: BP 101/50
[2017-05-11] MEDS: AMIODARONE HCL 200 MG TABLET PO SCH (18:18)
[2017-05-11 20:00] VITALS: BP 103/50
[2017-05-12] VITALS: BP 102/48
[2017-05-12 04:00] VITALS: BP 108/52
[2017-05-12 07:30] LABS: CALCIUM, SERUM 7.1 mg/dL (8.5-10.1); CARBON DIOXIDE 28 mmol/L (21-32); CHLORIDE 90 mmol/L (98-107); GLUCOSE 107 mg/dL (74-106); MAGNESIUM 2.3 mg/dL (1.8-2.4); PHOSPHORUS 4.6 mg/dL (2.5-4.9); POTASSIUM 4.6 mmol/L (3.5-5.1); SODIUM SERUM 126 mmol/L (136-145)
[2017-05-12 07:47] LABS: CREATININE 10.3 mg/dL (0.6-1.3); UREA NITROGEN, BLOOD 80 mg/dL (7-18)
[2017-05-12 08:00] VITALS: BP 106/58
[2017-05-12 08:46] LABS: BASOPHILS % (AUTO) 0.4 % (0.0-2.0); EOSINOPHILS # (AUTO) 0.1 /CMM (0.0-0.7); EOSINOPHILS % (AUTO) 2.1 % (0.0-6.0); HEMATOCRIT 28 % (39-51); HEMOGLOBIN 9.6 g/dL (13.5-17.5); LYMPHOCYTES # (AUTO) 0.8 /CMM (0.8-4.8); LYMPHOCYTES % (AUTO) 16.1 % (20.0-44.0); MEAN CORPUSCULAR HEMOGLOBIN 32 PG (26.0-33.0); MEAN CORPUSCULAR HGB CONC 34 g/dl (31.0-36.0); MEAN CORPUSCULAR VOLUME 94 fL (80-96); MONOCYTES # (AUTO) 0.5 /CMM (0.1-1.30); MONOCYTES % (AUTO) 9.2 % (2.0-12.0); NEUTROPHILS # (AUTO) 3.6 /CMM (1.8-8.9); NEUTROPHILS % (AUTO) 72.2 % (43.0-81.0); PLATELET COUNT (AUTO) 135 /CMM (150-450); RDW COEFFICIENT OF VARIATION 12.9 (11.5-15.0); RED BLOOD CELL COUNT(AUTO) 3.03 MIL/uL (4.5-6.0); WHITE BLOOD COUNT (AUTO) 4.9 K/uL (4.3-11.0)
[2017-05-12] MEDS: ISOSORBIDE DINITRATE (20MG) 20 MG TABLET PO SCH ×2 (08:59→16:55)
[2017-05-12] MEDS: SEVELAMER CARBONATE 800 MG TABLET PO SCH ×3 (08:59→17:00)
[2017-05-12] MEDS: AMIODARONE HCL 200 MG TABLET PO SCH ×2 (08:59→16:54)
[2017-05-12] MEDS: hydrALAZINE HCL 50 MG TABLET PO SCH ×3 (08:59→16:54)
[2017-05-12] MEDS: NIFEdipine XL (30MG) 30 MG TAB PO SCH (09:00)
[2017-05-12] MEDS: METOPROLOL TARTRATE 50 MG TABLET PO SCH ×2 (09:00→22:08)
[2017-05-12 12:00] VITALS: BP 122/53
[2017-05-12] MEDS: CEFTRIAXONE 1 G in IV D5W 50 ML IV SCH (12:46)
[2017-05-12] MEDS: SOD FERRIC GLUC 125 MG in IV NS 0.9% 100 ML IV SCH (14:26)
[2017-05-12 16:00] VITALS: BP 140/64
[2017-05-12 20:00] VITALS: BP 117/57
[2017-05-13] VITALS (9 sets, daily range): BP systolic 103–190; BP diastolic 54–76
[2017-05-13 07:55] LABS: BASOPHILS % (AUTO) 0.4 % (0.0-2.0); EOSINOPHILS # (AUTO) 0.1 /CMM (0.0-0.7); EOSINOPHILS % (AUTO) 1.6 % (0.0-6.0); HEMATOCRIT 26 % (39-51); HEMOGLOBIN 9.6 g/dL (13.5-17.5); LYMPHOCYTES # (AUTO) 0.9 /CMM (0.8-4.8); LYMPHOCYTES % (AUTO) 18.6 % (20.0-44.0); MEAN CORPUSCULAR HEMOGLOBIN 40 PG (26.0-33.0); MEAN CORPUSCULAR HGB CONC 37 g/dl (31.0-36.0); MEAN CORPUSCULAR VOLUME 108 fL (80-96); MONOCYTES # (AUTO) 0.5 /CMM (0.1-1.30); MONOCYTES % (AUTO) 11.4 % (2.0-12.0); NEUTROPHILS # (AUTO) 3.2 /CMM (1.8-8.9); PLATELET COUNT (AUTO) 147 /CMM (150-450); RED BLOOD CELL COUNT(AUTO) 2.42 MIL/uL (4.5-6.0); WHITE BLOOD COUNT (AUTO) 4.7 K/uL (4.3-11.0)
[2017-05-13 08:24] LABS: CALCIUM, SERUM 6.6 mg/dL (8.5-10.1); CARBON DIOXIDE 25 mmol/L (21-32); CHLORIDE 93 mmol/L (98-107); GLUCOSE 95 mg/dL (74-106); MAGNESIUM 2.3 mg/dL (1.8-2.4); POTASSIUM 4.9 mmol/L (3.5-5.1); SODIUM SERUM 131 mmol/L (136-145)
[2017-05-13 08:29] LABS: CREATININE 12.2 mg/dL (0.6-1.3); UREA NITROGEN, BLOOD 95 mg/dL (7-18)
[2017-05-13] MEDS: AMIODARONE HCL 200 MG TABLET PO SCH ×2 (09:00→17:26)
[2017-05-13] MEDS: METOPROLOL TARTRATE 50 MG TABLET PO SCH ×3 (09:00→22:06)
[2017-05-13] MEDS: hydrALAZINE HCL 50 MG TABLET PO SCH ×3 (09:00→17:25)
[2017-05-13] MEDS: NIFEdipine XL (30MG) 30 MG TAB PO SCH ×2 (09:00→14:00)
[2017-05-13] MEDS: SEVELAMER CARBONATE 800 MG TABLET PO SCH ×3 (09:00→17:25)
[2017-05-13] MEDS: ISOSORBIDE DINITRATE (20MG) 20 MG TABLET PO SCH ×2 (09:00→17:00)
[2017-05-13 10:17] LABS: BAND % (MANUAL) 3 % (0.0-5.0); EOSINOPHILS % (MANUAL) 1 % (0-4); LYMPHOCYTES % (MANUAL) 19 % (16-48); MONOCYTES % (MANUAL) 10 % (0-11.0); NEUTROPHILS % (MANUAL) 67 (42-76)
[2017-05-13] MEDS: CLONIDINE HCL 0.1 MG TABLET PO PRN (12:27)
[2017-05-13] MEDS ORDERED: ISOS20TA8 PO (13:34)
[2017-05-13] MEDS ORDERED: APIX2.5T PO (13:34)
[2017-05-13] MEDS ORDERED: HYDR-4077 PO (13:34)
[2017-05-13] MEDS ORDERED: AMIO200T7 PO (13:34)
[2017-05-13] MEDS ORDERED: SULF1TAB48 PO (13:34)
[2017-05-13] MEDS: CEFTRIAXONE 1 G in IV D5W 50 ML IV SCH (14:02)
[2017-05-13] MEDS: APIXABAN 2.5 MG TABLET PO SCH (14:02)
[2017-05-13] MEDS ORDERED: IV NS 0.9% 500 ML IV ONE (14:30)
[2017-05-13] MEDS: SOD FERRIC GLUC 125 MG in IV NS 0.9% 100 ML IV SCH (16:15)
[2017-05-14 04:00] VITALS: BP 99/55
[2017-05-14 08:00] VITALS: BP 94/45
[2017-05-14] MEDS: SEVELAMER CARBONATE 800 MG TABLET PO SCH ×4 (09:00→17:00)
[2017-05-14] MEDS: NIFEdipine XL (30MG) 30 MG TAB PO SCH ×2 (09:00→09:08)
[2017-05-14] MEDS: hydrALAZINE HCL 50 MG TABLET PO SCH ×4 (09:00→17:00)
[2017-05-14] MEDS: AMIODARONE HCL 200 MG TABLET PO SCH ×3 (09:00→17:00)
[2017-05-14] MEDS: APIXABAN 2.5 MG TABLET PO SCH ×3 (09:00→18:24)
[2017-05-14] MEDS: METOPROLOL TARTRATE 50 MG TABLET PO SCH ×3 (09:00→21:57)
[2017-05-14] MEDS: ISOSORBIDE DINITRATE (20MG) 20 MG TABLET PO SCH ×3 (09:00→17:00)
[2017-05-14] MEDS: CEFTRIAXONE 1 G in IV D5W 50 ML IV SCH (12:41)
[2017-05-14] MEDS: SOD FERRIC GLUC 125 MG in IV NS 0.9% 100 ML IV SCH (14:40)
[2017-05-14 16:00] VITALS: BP 119/52
[2017-05-14] MEDS: RENAL NOVASOURCE (8OZ) 1 EA BOX PO SCH (18:24)
[2017-05-14 20:00] VITALS: BP 129/59
[2017-05-15 04:00] VITALS: BP 141/60
[2017-05-15 08:00] VITALS: BP 154/60
[2017-05-15] MEDS: RENAL NOVASOURCE (8OZ) 1 EA BOX PO SCH ×2 (08:00→17:48)
[2017-05-15] MEDS: SEVELAMER CARBONATE 800 MG TABLET PO SCH ×3 (09:00→17:46)
[2017-05-15] MEDS: APIXABAN 2.5 MG TABLET PO SCH ×2 (09:00→17:46)
[2017-05-15] MEDS: NIFEdipine XL (30MG) 30 MG TAB PO SCH (09:00)
[2017-05-15] MEDS: AMIODARONE HCL 200 MG TABLET PO SCH ×2 (09:00→17:00)
[2017-05-15] MEDS: hydrALAZINE HCL 50 MG TABLET PO SCH ×3 (09:00→17:00)
[2017-05-15] MEDS: ISOSORBIDE DINITRATE (20MG) 20 MG TABLET PO SCH ×2 (09:00→17:00)
[2017-05-15] MEDS: METOPROLOL TARTRATE 50 MG TABLET PO SCH ×2 (09:00→21:00)
[2017-05-15] MEDS: ONDANSETRON HCL/PF 4 MG/2 ML VIAL IVP PRN (11:48)
[2017-05-15] MEDS: CEFTRIAXONE 1 G in IV D5W 50 ML IV SCH (13:00)
[2017-05-15 16:00] VITALS: BP 142/55
[2017-05-15] MEDS: SOD FERRIC GLUC 125 MG in IV NS 0.9% 100 ML IV SCH (17:47)
[2017-05-15 20:00] VITALS: BP 166/68
[2017-05-16 04:00] VITALS: BP 160/66
[2017-05-16 08:00] VITALS: BP 175/74
[2017-05-16] MEDS: RENAL NOVASOURCE (8OZ) 1 EA BOX PO SCH ×2 (08:00→17:28)
[2017-05-16] MEDS: AMIODARONE HCL 200 MG TABLET PO SCH ×2 (08:53→17:00)
[2017-05-16] MEDS: SEVELAMER CARBONATE 800 MG TABLET PO SCH ×3 (08:53→17:29)
[2017-05-16] MEDS: hydrALAZINE HCL 50 MG TABLET PO SCH ×2 (08:53→12:31)
[2017-05-16] MEDS: METOPROLOL TARTRATE 50 MG TABLET PO SCH (08:53)
[2017-05-16] MEDS: ISOSORBIDE DINITRATE (20MG) 20 MG TABLET PO SCH ×2 (08:54→17:00)
[2017-05-16] MEDS: NIFEdipine XL (30MG) 30 MG TAB PO SCH (08:54)
[2017-05-16] MEDS: APIXABAN 2.5 MG TABLET PO SCH ×2 (09:00→17:29)
[2017-05-16] MEDS: ONDANSETRON HCL/PF 4 MG/2 ML VIAL IVP PRN (09:48)
[2017-05-16] MEDS: CEFTRIAXONE 1 G in IV D5W 50 ML IV SCH (13:33)
[2017-05-16] MEDS ORDERED: hydrALAZINE HCL 10 MG TABLET PO PRN (15:30)
[2017-05-16 20:00] VITALS: BP 86/41
[2017-05-17 07:50] LABS: BASOPHILS % (AUTO) 0.5 % (0.0-2.0); EOSINOPHILS # (AUTO) 0.5 /CMM (0.0-0.7); EOSINOPHILS % (AUTO) 6.6 % (0.0-6.0); HEMATOCRIT 30 % (39-51); HEMOGLOBIN 10.3 g/dL (13.5-17.5); LYMPHOCYTES # (AUTO) 1.2 /CMM (0.8-4.8); LYMPHOCYTES % (AUTO) 17.3 % (20.0-44.0); MEAN CORPUSCULAR HEMOGLOBIN 33 PG (26.0-33.0); MEAN CORPUSCULAR HGB CONC 34 g/dl (31.0-36.0); MEAN CORPUSCULAR VOLUME 95 fL (80-96); MONOCYTES # (AUTO) 0.6 /CMM (0.1-1.30); MONOCYTES % (AUTO) 9.2 % (2.0-12.0); NEUTROPHILS # (AUTO) 4.5 /CMM (1.8-8.9); NEUTROPHILS % (AUTO) 66.4 % (43.0-81.0); PLATELET COUNT (AUTO) 219 /CMM (150-450); RDW COEFFICIENT OF VARIATION 12.6 (11.5-15.0); RED BLOOD CELL COUNT(AUTO) 3.18 MIL/uL (4.5-6.0); WHITE BLOOD COUNT (AUTO) 6.8 K/uL (4.3-11.0)
[2017-05-17 07:56] LABS: CALCIUM, SERUM 7.1 mg/dL (8.5-10.1); CARBON DIOXIDE 31 mmol/L (21-32); CHLORIDE 93 mmol/L (98-107); GLUCOSE 99 mg/dL (74-106); MAGNESIUM 2.5 mg/dL (1.8-2.4); PHOSPHORUS 3.8 mg/dL (2.5-4.9); POTASSIUM 4.2 mmol/L (3.5-5.1); SODIUM SERUM 132 mmol/L (136-145); UREA NITROGEN, BLOOD 70 mg/dL (7-18)
[2017-05-17 08:00] VITALS: BP_SYST 110; BP_DIAS 50; BP_DIAS 55
[2017-05-17 08:22] LABS: CREATININE 10.6 mg/dL (0.6-1.3)
[2017-05-17] MEDS: SEVELAMER CARBONATE 800 MG TABLET PO SCH ×3 (09:58→17:31)
[2017-05-17] MEDS: RENAL NOVASOURCE (8OZ) 1 EA BOX PO SCH ×2 (09:58→17:19)
[2017-05-17] MEDS: ISOSORBIDE DINITRATE (20MG) 20 MG TABLET PO SCH ×2 (10:00→17:00)
[2017-05-17] MEDS: AMIODARONE HCL 200 MG TABLET PO SCH ×2 (10:03→17:00)
[2017-05-17] MEDS: APIXABAN 2.5 MG TABLET PO SCH ×2 (10:08→21:39)
[2017-05-17] MEDS: CEFTRIAXONE 1 G in IV D5W 50 ML IV SCH (13:16)
[2017-05-17 16:00] VITALS: BP 92/40
[2017-05-17 20:00] VITALS: BP_SYST 106; BP_SYST 92; BP_DIAS 49; BP_DIAS 50
[2017-05-18] VITALS: BP 146/83
[2017-05-18 04:00] VITALS: BP 115/40
[2017-05-18 08:00] VITALS: BP 146/56
[2017-05-18] MEDS: RENAL NOVASOURCE (8OZ) 1 EA BOX PO SCH ×2 (08:32→16:28)
[2017-05-18] MEDS: APIXABAN 2.5 MG TABLET PO SCH ×2 (08:41→16:26)
[2017-05-18] MEDS: AMIODARONE HCL 200 MG TABLET PO SCH ×2 (08:42→16:27)
[2017-05-18] MEDS: SEVELAMER CARBONATE 800 MG TABLET PO SCH ×3 (08:42→16:26)
[2017-05-18] MEDS ORDERED: ISOSORBIDE DINITRATE (20MG) 20 MG TABLET PO SCH (09:00)
[2017-05-18 09:10] LABS: CALCIUM, SERUM 7.7 mg/dL (8.5-10.1); CARBON DIOXIDE 33 mmol/L (21-32); CHLORIDE 96 mmol/L (98-107); GLUCOSE 114 mg/dL (74-106); MAGNESIUM 2.4 mg/dL (1.8-2.4); PHOSPHORUS 3.3 mg/dL (2.5-4.9); POTASSIUM 4.5 mmol/L (3.5-5.1); SODIUM SERUM 134 mmol/L (136-145); UREA NITROGEN, BLOOD 49 mg/dL (7-18)
[2017-05-18 09:11] LABS: CREATININE 8.7 mg/dL (0.6-1.3)
[2017-05-18 09:50] LABS: BASOPHILS % (AUTO) 0.6 % (0.0-2.0); EOSINOPHILS # (AUTO) 0.5 /CMM (0.0-0.7); EOSINOPHILS % (AUTO) 7.3 % (0.0-6.0); HEMATOCRIT 30 % (39-51); HEMOGLOBIN 10.1 g/dL (13.5-17.5); LYMPHOCYTES # (AUTO) 1.2 /CMM (0.8-4.8); LYMPHOCYTES % (AUTO) 16.7 % (20.0-44.0); MEAN CORPUSCULAR HEMOGLOBIN 32 PG (26.0-33.0); MEAN CORPUSCULAR HGB CONC 34 g/dl (31.0-36.0); MEAN CORPUSCULAR VOLUME 95 fL (80-96); MONOCYTES # (AUTO) 0.6 /CMM (0.1-1.30); MONOCYTES % (AUTO) 8.1 % (2.0-12.0); NEUTROPHILS # (AUTO) 4.8 /CMM (1.8-8.9); NEUTROPHILS % (AUTO) 67.3 % (43.0-81.0); PLATELET COUNT (AUTO) 240 /CMM (150-450); RDW COEFFICIENT OF VARIATION 12.7 (11.5-15.0); RED BLOOD CELL COUNT(AUTO) 3.19 MIL/uL (4.5-6.0); WHITE BLOOD COUNT (AUTO) 7.1 K/uL (4.3-11.0)
[2017-05-18] MEDS: CEFTRIAXONE 1 G in IV D5W 50 ML IV SCH (12:25)
[2017-05-18 16:00] VITALS: BP 110/53
[2017-05-18] MEDS ORDERED: [UNRECOGNIZED DRUG - OTHER] PO (16:17)
[2017-05-18] MEDS ORDERED: ISOS20TA8 PO (16:17)
[2017-05-18] MEDS ORDERED: SEVE800T7 PO (16:17)
[2017-05-18 17:50] VITALS: BP 110/53
== END 2017-05-18 17:53 | disposition home or self-care (01) | DRG 177 ==
LOC: ER 09:19 → TELE 12:12 → TELE1 05-10 17:44 → TELE-TD 05-10 20:26 → TELE1 05-11 12:05 → MEDSG1 05-12 10:38
PROVIDERS: ADMIT Internal Medicine; ATTEND Internal Medicine
PROC: 5A1D70Z Performance of Urinary Filtration, Intermittent, Less than 6 Hours Per Day (ICD-10-PCS; principal; 2017-05-10)
PROC: 5A1D70Z Performance of Urinary Filtration, Intermittent, Less than 6 Hours Per Day (ICD-10-PCS; 2017-05-13)
PROC: 5A1D70Z Performance of Urinary Filtration, Intermittent, Less than 6 Hours Per Day (ICD-10-PCS; 2017-05-15)
PROC: 5A1D70Z Performance of Urinary Filtration, Intermittent, Less than 6 Hours Per Day (ICD-10-PCS; 2017-05-17)
DX: J15.6 Pneumonia due to other Gram-negative bacteria (principal); N18.6 End stage renal disease; J96.01 Acute respiratory failure with hypoxia; I21.A1 Myocardial infarction type 2; D68.59 Other primary thrombophilia; E87.5 Hyperkalemia; I12.0 Hypertensive chronic kidney disease with stage 5 chronic kidney disease or end stage renal disease; E83.39 Other disorders of phosphorus metabolism; I48.91 Unspecified atrial fibrillation; J15.9 Unspecified bacterial pneumonia; M54.9 Dorsalgia, unspecified; Z99.2 Dependence on renal dialysis; I25.10 Atherosclerotic heart disease of native coronary artery without angina pectoris; I51.7 Cardiomegaly; Z79.01 Long term (current) use of anticoagulants; D63.8 Anemia in other chronic diseases classified elsewhere; R42 Dizziness and giddiness; I95.1 Orthostatic hypotension; T50.905A Adverse effect of unspecified drugs, medicaments and biological substances, initial encounter; Y92.009 Unspecified place in unspecified non-institutional (private) residence as the place of occurrence of the external cause
CPT/HCPCS: 36415; 71045-TC; 80048-TC; 80053-TC; 80061-TC; 80076-TC; 81000-TC; 82553-TC; 82962-TC; 83540-TC; 83605-TC; 83735-TC; 84100-TC; 84439-TC; 84443-TC; 84484-TC; 85025-TC; 85730-TC; 87040-TC; 87081-TC; 87086-TC; 90935-TC; 93307-TC; 97110-TC; 97530-TC; A4216; A4606; J0282; J0610; J0696; J1815; J1956; J2270; J2405; J2916; J7030; J7040; J7050; J7060; Z7610

== ENCOUNTER 2017-06-18 18:48 | Inpatient (IN) | payer OTHER ==
[~2017-06-18] VITALS: Ht 180.3 cm; Wt 63.5 kg
[~2017-06-18 18:48] MED LIST changes: +AMIO200T7 PO; +APIX2.5T PO; +ISOS20TA8 PO; -LOSA100T15 PO; -METO50TA16 PO; -NIFE90TA37 PO; +SEVE800T7 PO; -SEVE800T8 PO; +[UNRECOGNIZED DRUG - OTHER] PO
--- NOTE | 2017-06-18 19:17 | NUR ---
PT BIB FAMILY FROM HOME, AMBULATORY TO ER BED 6, PT C/O WEAKNESS/ DIZZINESS AND LEFT LEG PAIN X 1 WEEK WITH N/V. PT AOX3 RR EVEN AND UNLABORED. NO SOB NOTED. NAD NOTED. NO NVD AT THIS TIME. PT GOWNED AND PLACED ON MONITOR. DR. MARSHALL AT BEDSIDE FOR EVAL PT NOTED WITH HD SITE ON BAL BRUIT AND THRILL NOTED.
[2017-06-18] MEDS ORDERED: ALBUTEROL FS 2.5 MG/3 ML VIAL.NEB NEB ONE (19:30)
[2017-06-18] MEDS ORDERED: IPRATROPIUM NEB FS 0.5 MG/2.5 ML AMPUL.NEB NEB ONE (19:30)
--- NOTE | 2017-06-18 19:52 | NUR ---
RADIOLOGY AT BEDSIDE FOR XRAY
--- NOTE | 2017-06-18 19:58 | NUR ---
INFORMED RT FOR BREATHING TX DUE
[2017-06-18] MEDS ORDERED: IPRATROPIUM NEB FS 0.5 MG/2.5 ML AMPUL.NEB ONE (20:03)
[2017-06-18] MEDS ORDERED: ALBUTEROL FS 2.5 MG/3 ML VIAL.NEB ONE (20:03)
--- NOTE | 2017-06-18 20:04 | NUR ---
GIRLFRIEND NELI [phone]
[2017-06-18 20:06] LABS: BASOPHILS % (AUTO) 0.4 % (0.0-2.0); EOSINOPHILS # (AUTO) 0.6 /CMM (0.0-0.7); EOSINOPHILS % (AUTO) 6.6 % (0.0-6.0); HEMATOCRIT 29 % (39-51); HEMOGLOBIN 9.9 g/dL (13.5-17.5); LYMPHOCYTES # (AUTO) 0.8 /CMM (0.8-4.8); LYMPHOCYTES % (AUTO) 8.9 % (20.0-44.0); MEAN CORPUSCULAR HEMOGLOBIN 33 PG (26.0-33.0); MEAN CORPUSCULAR HGB CONC 35 g/dl (31.0-36.0); MEAN CORPUSCULAR VOLUME 96 fL (80-96); MONOCYTES # (AUTO) 0.5 /CMM (0.1-1.30); MONOCYTES % (AUTO) 6.3 % (2.0-12.0); NEUTROPHILS # (AUTO) 6.6 /CMM (1.8-8.9); NEUTROPHILS % (AUTO) 77.8 % (43.0-81.0); PLATELET COUNT (AUTO) 357 /CMM (150-450); RED BLOOD CELL COUNT(AUTO) 2.98 MIL/uL (4.5-6.0); WHITE BLOOD COUNT (AUTO) 8.5 K/uL (4.3-11.0)
--- NOTE | 2017-06-18 20:08 | NUR ---
RT AT BEDSIDE FOR BREATHING TX.
[2017-06-18 20:20] LABS: CALCIUM, SERUM 8.2 mg/dL (8.5-10.1); CARBON DIOXIDE 31 mmol/L (21-32); CHLORIDE 97 mmol/L (98-107); GLUCOSE 147 mg/dL (74-106); POTASSIUM 4.1 mmol/L (3.5-5.1); SODIUM SERUM 135 mmol/L (136-145); UREA NITROGEN, BLOOD 41 mg/dL (7-18)
[2017-06-18 20:24] LABS: CREATININE 8.3 mg/dL (0.6-1.3)
[2017-06-18 20:27] LABS: TROPONIN I 0.019 ng/mL (0.00-0.056)
[2017-06-18 20:36] LABS: ALANINE AMINOTRANSFERASE 25 U/L (12-78); ALBUMIN 2.9 g/dL (3.4-5.0); ALKALINE PHOSPHATASE 103 U/L (46-116); ASPARTATE AMINOTRANSFERASE 20 U/L (15-37); BILIRUBIN,DIRECT 0.1 mg/dL (0.0-0.2); BILIRUBIN,TOTAL 0.6 mg/dL (0.2-1.0); TOTAL PROTEIN, SERUM 7.6 g/dL (6.4-8.2)
--- NOTE | 2017-06-18 21:21 | NUR ---
DR. MARSHALL AT BEDSIDE FOR EVAL.
[2017-06-18] MEDS ORDERED: VANCOMYCIN 1 GM in IV D5W 250 ML IV ONE (21:30)
[2017-06-18] MEDS ORDERED: CEFEPIME 1 GM in IV D5W 50 ML IV ONE (21:30)
[2017-06-18] MEDS ORDERED: CEFEPIME 1 GM VIAL ONE (21:40)
--- NOTE | 2017-06-18 21:52 | NUR ---
DR. SCHMITT AT BEDSIDE FOR EVAL.
[2017-06-18] MEDS ORDERED: VANCOMYCIN 1 GM VIAL ONE (22:24)
[2017-06-18] MEDS ORDERED: Z GUARD REMEDY 2 OZ OINT TP PRN (22:30)
[2017-06-18] MEDS ORDERED: MAG HYDROX/AL HYDROX/SIMETH 30 ML UDC PO PRN (22:30)
[2017-06-18] MEDS ORDERED: ONDANSETRON HCL/PF 4 MG/2 ML VIAL IVP PRN (22:30)
[2017-06-18] MEDS ORDERED: HYDROCODONE/APAP 5/325MG 1 EACH TABLET PO PRN (22:30)
[2017-06-18] MEDS ORDERED: ACETAMINOPHEN 325 MG TABLET PO PRN (22:30)
[2017-06-18] MEDS ORDERED: MAGNESIUM HYDROXIDE 30 ML UDC PO PRN (22:30)
--- NOTE | 2017-06-18 22:34 | NUR ---
INFORMED MD REGARDING CURRENT BP, WAITING FOR ORDERS.
[2017-06-18] MEDS ORDERED: hydrALAZINE HCL IV 20 MG VIAL ONE (22:52)
--- NOTE | 2017-06-18 22:57 | NUR ---
VERBAL ORDERS PER DR. GAVIN TO GIVE HYDRAZLINE 10MG IVP NOW ONE TIME.
[2017-06-18] MEDS ORDERED: hydrALAZINE HCL IV 20 MG VIAL IV PRN (23:00)
--- NOTE | 2017-06-18 23:14 | NUR ---
REPORT GIVEN TO EUN LEVY ON BEHALF OF EUN KOVACS.
--- NOTE | 2017-06-18 23:30 | NUR ---
PIANO REFINISHER NOTES PATIENT ARRIVED TO UNIT VIA GURNEY, ACCOMPANIED BY ER STAFF, RECEIVED BEDSIDE REPORT FROM BENNY HAQ. PATIENT IS ALERT AND ORIENTED X 3, BREATHING EVEN AND UNLABORED, NO SOB NOTED, WITH NO C/O PAIN AND IS IN NO ACUTE DISTRESS. ORIENTED PATIENT TO UNIT, ROOM, ROOMMATE, CALL LIGHT AND USE OF CALL LIGHT. PT VERBALIZED UNDERSTANDING AND IS FAMILIAR WITH CALL LIGHT. ORIENTED PATIENT TO ADMISSION PROCESS, PATIENT REFUSED SKIN CHECK. NOTED PATIENT WITH IV HEPLOCK ON RAC g20, PATENT AND INTACT. PATIENT WITH LFA AV FISTULA WITH POSITIVE BRUIT AND THRILL. NO S/S OF BLEEDING NOTED ON SITE. PER PATIENT HE WAS ADMITTED IN FACILITY BEFORE AND IS FAMILIAR WITH HOW THINGS WORK. PLACED BED IN LOW POSITION, LOCKED IN PLACE. CALL LIGHT PLACED WITHIN EASY REACH. ALL PATIENT'S ATTENDED TO AT THIS TIME. WILL CONTINUE TO MONITOR PT.
--- NOTE | 2017-06-18 23:35 | NUR ---
PT TRANSFERRED PER ACLS PROTOCOL.
[2017-06-19] VITALS: BP 143/65
[2017-06-19 04:00] VITALS: BP 144/70
--- NOTE | 2017-06-19 05:31 | NUR ---
RN NOTE INFORMED PATIENT THAT URINE NEEDS TO BE COLLECTED FOR TESTING. PATIENT REFUSED URINE COLLECTION VIA CATHETERIZATION AT THIS TIME. EXPLAINED RISKS AND BENEFITS TO PATIENT BUT PATIENT CONTINUES TO REFUSE. VERBALIZED THAT HE DOESN'T URINATE SO MUCH AND THAT HE WILL TRY TO URINATE AFTER BREAKFAST VIA URINAL. RESPECTED PATIENT'S DECISION.WILL ENDORSE TO AM SHIFT NURSE.
--- NOTE | 2017-06-19 06:30 | NUR ---
RN CLOSING NOTE PATIENT IN BED, ASLEEP BUT EASILY AROUSABLE, NO SOB NOTED, BREATHING EVEN AND UNLABORED, NO C/O PAIN AND IN NO ACUTE DISTRESS. UNDER TELEMETRY MONITORING WITH SR @ 67 BPM. ALL PATIENT'S NEEDS ATTENDED TO AT THIS TIME. CALL LIGHT PLACED WITHIN EASY REACH. PLACED BED IN LOW POSITION AND LOCKED IN PLACE. WILL ENDORSE TO AM SHIFT NURSE FOR CONTINUITY OF CARE.
--- NOTE | 2017-06-19 07:28 | NUR ---
ELECTRODE CLEANER: INITIAL NOTE RECEIVED PT A/OX3. NO DISTRESS NOTED. NO SOB NOTED. NO PAIN NOTED. ON 2L SATING AT 95%. ON TELE MONITORING AT 62BPM. BEDREST. REFUSED SKIN CHECK. ALL RISKS AND BENEFITS EXPLAINED. ON RENAL DIET. L AC #20 HL. NO IV FLUIDS RUNNING. SITE CLEAR AND PATENT. ON DIALYSIS ON MONDAYS/WEDNESDAYS/ SATURDAY. RESTING COMFORTABLY IN BED. CALL LIGHT WITHIN REACH.
[2017-06-19] MEDS ORDERED: FEE PK DOSING 1 MIN EA MC ONE (07:36)
[2017-06-19 07:39] LABS: CALCIUM, SERUM 8.2 mg/dL (8.5-10.1); CARBON DIOXIDE 29 mmol/L (21-32); CHLORIDE 98 mmol/L (98-107); GLUCOSE 135 mg/dL (74-106); MAGNESIUM 2.2 mg/dL (1.8-2.4); PHOSPHORUS 2.3 mg/dL (2.5-4.9); POTASSIUM 4.2 mmol/L (3.5-5.1); SODIUM SERUM 137 mmol/L (136-145); UREA NITROGEN, BLOOD 42 mg/dL (7-18)
[2017-06-19 07:42] LABS: TROPONIN I 0.019 ng/mL (0.00-0.056)
[2017-06-19 07:45] LABS: CREATININE 9.3 mg/dL (0.6-1.3)
[2017-06-19 07:47] LABS: CHOLESTEROL 150 mg/dL (<200); HDL CHOLESTEROL 60 mg/dL (40-60); LDL 75 mg/dL (0-99); THYROID STIMULATING HORMONE 1.331 uIU/mL (0.358-3.74); TRIGLYCERIDES 67 mg/dL (30-150)
[2017-06-19 08:00] VITALS: BP 174/74
[2017-06-19] MEDS ORDERED: SEVELAMER CARBONATE 800 MG TABLET PO SCH (08:00)
[2017-06-19] MEDS ORDERED: VANCOMYCIN 500 MG in IV NS 0.9% 100 ML IV PRN (08:00)
[2017-06-19 08:03] LABS: BASOPHILS % (AUTO) 0.5 % (0.0-2.0); EOSINOPHILS # (AUTO) 0.9 /CMM (0.0-0.7); EOSINOPHILS % (AUTO) 8.8 % (0.0-6.0); HEMATOCRIT 30 % (39-51); HEMOGLOBIN 9.8 g/dL (13.5-17.5); LYMPHOCYTES # (AUTO) 0.8 /CMM (0.8-4.8); LYMPHOCYTES % (AUTO) 7.8 % (20.0-44.0); MEAN CORPUSCULAR HEMOGLOBIN 32 PG (26.0-33.0); MEAN CORPUSCULAR HGB CONC 33 g/dl (31.0-36.0); MEAN CORPUSCULAR VOLUME 97 fL (80-96); MONOCYTES # (AUTO) 0.6 /CMM (0.1-1.30); MONOCYTES % (AUTO) 5.6 % (2.0-12.0); NEUTROPHILS # (AUTO) 8.2 /CMM (1.8-8.9); NEUTROPHILS % (AUTO) 77.3 % (43.0-81.0); PLATELET COUNT (AUTO) 326 /CMM (150-450); RDW COEFFICIENT OF VARIATION 13.8 (11.5-15.0); RED BLOOD CELL COUNT(AUTO) 3.05 MIL/uL (4.5-6.0); WHITE BLOOD COUNT (AUTO) 10.6 K/uL (4.3-11.0)
[2017-06-19] MEDS: RENAL NOVASOURCE (8OZ) 1 EA BOX PO SCH ×2 (08:40→16:27)
[2017-06-19] MEDS: APIXABAN 2.5 MG TABLET PO SCH ×2 (08:40→16:27)
--- NOTE | 2017-06-19 08:40 | NUR ---
HELD AMIODARONE AND ISOMERIDE DUE TO SCHEDULED DIALYSIS.
--- NOTE | 2017-06-19 12:04 | NUR ---
DIALYSIS COMPLETE. 1.5 L OUTPUT. BP 155/77. PULSE 66. ADMINISTER ISOBRIDE AND AMIODARONE ORDERED FROM AM. PT STABLE. NO DISTRESS NOTED.
[2017-06-19] MEDS: AMIODARONE HCL 200 MG TABLET PO SCH ×2 (12:10→16:28)
[2017-06-19] MEDS: ISOSORBIDE DINITRATE (20MG) 20 MG TABLET PO SCH (12:11)
[2017-06-19] MEDS ORDERED: EPOETIN ALFA (10,000 UNIT) 10,000 UNIT/ML VIAL SQ ONE (15:00)
[2017-06-19 16:00] VITALS: BP 103/53
--- NOTE | 2017-06-19 18:26 | NUR ---
MS RN: INITIAL NOTE PT TOOK ALL MEDICATIONS ON TIME. NO ADVERSE REACTIONS NOTED. NO SOB NOTED. NO PAIN NOTED. ON 2L NC SATING AT 93%. A/OX4. CHANGED TO MS. AMBULATES WITH ASSISTANCE. USES URINAL NEEDED. AV FISTULA ON L UPPER CHEST. REFUSED SKIN CHECK. ALL RISKS AND BENEFITS EXPLAINED. IV ON R AC #20 SL. SITE CLEAR AND PATENT. DIALYSIS COMPLETED TODAY. 1.3L OUT. BLOOD PRESSURE MEDICATIONS GIVEN AFTER DIALYSIS. RESTING COMFORTABLY IN BED. CALL LIGHT WITHIN REACH. Addendum: 06/19/17 at 1833 by DEVYN VALLADARES RN CLOSING NOTE.
--- NOTE | 2017-06-19 18:34 | NUR ---
MS RN: CLOSING NOTE PT TOOK ALL MEDICATIONS ON TIME. NO ADVERSE REACTIONS NOTED. NO SOB NOTED. NO PAIN NOTED. ON 2L NC SATING AT 93%. A/OX4. CHANGED TO MS. AMBULATES WITH ASSISTANCE. USES URINAL NEEDED. AV FISTULA ON L UPPER CHEST. REFUSED SKIN CHECK. ALL RISKS AND BENEFITS EXPLAINED. IV ON R AC #20 SL. SITE CLEAR AND PATENT. DIALYSIS COMPLETED TODAY. 1.3L OUT. BLOOD PRESSURE MEDICATIONS GIVEN AFTER DIALYSIS. RESTING COMFORTABLY IN BED. CALL LIGHT WITHIN REACH.
--- NOTE | 2017-06-19 19:20 | NUR ---
PRODUCT MARKETING EXECUTIVE NOTES RECEIVED PT IN BED, AWAKE, A/OX3. NO DISTRESS NOTED. NO SOB NOTED. NO C/O PAIN OR DISCOMFORT AT THIS TIME. ON 2L SATING AT 96%. PT REFUSED SKIN CHECK, RISK AND BENEFITS EXPLAINED, PT STILL REFUSED X 3. ON RENAL DIET. I V SITE ON L AC #20 HL, INTACT AND PATENT. NO S/S OF INFILTRATION NOTED. ALL NEEDS ATTENDED AND MET, KEPT COMFORTABLE. CALL LIGHT WITHIN REACH. WILL CONTINUE TO MONITOR.
[2017-06-19 20:00] VITALS: BP 112/55
[2017-06-19] MEDS ORDERED: CEFEPIME 1 GM in IV D5W 50 ML IV SCH (21:00)
[2017-06-20 06:10] LABS: BASOPHILS % (AUTO) 0.3 % (0.0-2.0); EOSINOPHILS # (AUTO) 0.7 /CMM (0.0-0.7); HEMATOCRIT 27 % (39-51); HEMOGLOBIN 9.3 g/dL (13.5-17.5); LYMPHOCYTES # (AUTO) 0.9 /CMM (0.8-4.8); LYMPHOCYTES % (AUTO) 9.7 % (20.0-44.0); MEAN CORPUSCULAR HEMOGLOBIN 36 PG (26.0-33.0); MEAN CORPUSCULAR HGB CONC 35 g/dl (31.0-36.0); MEAN CORPUSCULAR VOLUME 102 fL (80-96); MONOCYTES # (AUTO) 0.6 /CMM (0.1-1.30); MONOCYTES % (AUTO) 6.7 % (2.0-12.0); NEUTROPHILS # (AUTO) 6.7 /CMM (1.8-8.9); NEUTROPHILS % (AUTO) 75.3 % (43.0-81.0); PLATELET COUNT (AUTO) 323 /CMM (150-450); RDW COEFFICIENT OF VARIATION 13.7 (11.5-15.0); RED BLOOD CELL COUNT(AUTO) 2.61 MIL/uL (4.5-6.0); WHITE BLOOD COUNT (AUTO) 8.9 K/uL (4.3-11.0)
[2017-06-20 06:29] LABS: CALCIUM, SERUM 7.9 mg/dL (8.5-10.1); CARBON DIOXIDE 31 mmol/L (21-32); CHLORIDE 98 mmol/L (98-107); GLUCOSE 104 mg/dL (74-106); MAGNESIUM 2.1 mg/dL (1.8-2.4); PHOSPHORUS 2.1 mg/dL (2.5-4.9); POTASSIUM 4.1 mmol/L (3.5-5.1); SODIUM SERUM 137 mmol/L (136-145); UREA NITROGEN, BLOOD 35 mg/dL (7-18)
[2017-06-20 06:30] LABS: CREATININE 7.8 mg/dL (0.6-1.3)
--- NOTE | 2017-06-20 06:44 | NUR ---
SUPERVISOR ASPHALT PAVING NOTES PT IN BED, RESTING COMFORTABLY AT THIS TIME, AROUSES EASILY , A/OX3. NO DISTRESS NOTED. NO SOB NOTED. NO C/O PAIN OR DISCOMFORT AT THIS TIME. ON 2L SATING AT 97%. PT ON RENAL DIET, SAMUEL WELL. IV SITE ON L AC #20 HL, INTACT AND PATENT. NO S/S OF INFILTRATION NOTED. ALL NEEDS ATTENDED AND MET, KEPT COMFORTABLE. ALL DUE MEDS GIVEN. CALL LIGHT WITHIN REACH. SAFETY PRECAUTIONS OBSERVED. WILL ENDORSE TO DAY SHIFT FOR SUMI.
--- NOTE | 2017-06-20 07:15 | NUR ---
MS RN NOTES RECEIVED PATIENT IN BED, ALERT ORIENTED X 3. HOB ELAVATED. NO ACUTE DISTRESS NOTED. NO SOB NOTED. RESPIRATION UNLABORED. ON 02 @ 2LPM VIA NC SATURATING AT 96%. IV ACCES PATENT AND INTACT, NO REDNESS OR SWELLING AT THE SITE. SAFETY MEASURES IN PLACE. CALL LIGHT WITHIN REACH. WILL CONTINUE TO MONITOR ACCORDINGLY.
[2017-06-20 08:00] VITALS: BP 153/68
[2017-06-20] MEDS: AMIODARONE HCL 200 MG TABLET PO SCH ×2 (08:42→16:48)
[2017-06-20] MEDS: ISOSORBIDE DINITRATE (20MG) 20 MG TABLET PO SCH (08:42)
[2017-06-20] MEDS: RENAL NOVASOURCE (8OZ) 1 EA BOX PO SCH ×3 (08:43→16:47)
[2017-06-20] MEDS: APIXABAN 2.5 MG TABLET PO SCH ×2 (08:43→16:47)
--- NOTE | 2017-06-20 11:00 | NUR ---
MS HAQ NOTES SEEN AND EVALUATED BY DR SETHI WITH NEW ORDERS MADE. NOTED AND CARRIED OUT. Addendum: 06/20/17 at 1137 by MUNIR FAIR RN CORRECTION: NOT DR SETHI, DR ADAM HUNTER
--- NOTE | 2017-06-20 12:24 | NUR ---
MS RN NOTES DIETARY RECOMENDATION RECIEVED FOR [facility] RENAL CHANGE TO TID. DR MEDINA AWARE. NOTED AND CARRIED OUT.
[2017-06-20] MEDS ORDERED: K PHOS NEUTRAL 250 MG TABLET PO ONE (13:00)
[2017-06-20] MEDS ORDERED: RXVAN XX (15:23)
[2017-06-20] MEDS ORDERED: CEFT1VIA15 IV (15:23)
[2017-06-20 16:03] VITALS: BP 111/52
[2017-06-20] MEDS ORDERED: LACTOBACILLUS RHAMNOSUS GG 1 EACH CAP.SPRINK PO SCH (17:00)
--- NOTE | 2017-06-20 18:30 | NUR ---
MS RN NOTES PATIENT IN BED WATCHING TV, ALERT ORIENTED X 3. HOB ELEVATED. NO ACUTE DISTRESS NOTED. NO SOB NOTED. RESPIRATION UNLABORED. ON 02 @ 2LPM VIA NC SATURATING AT 96%. IV ACCES PATENT AND INTACT, NO REDNESS OR SWELLING AT THE SITE. LFA AV FISTULA INTACT, BRUIT AND THRILL POSITIVE, SECURED WITH DRESSING. DUE MEDICATIONS GIVEN, NO ASE NOTED. SAFETY MEASURES IN PLACE. CALL LIGHT WITHIN REACH. WILL CONTINUE TO MONITOR ACCORDINGLY. PATIENT FOR DISCHARGE, REPORT GIVEN TO TONI HAQ OF [facility]. FAMILY AWARE OF TRANSFER. RESIDENT REFUSED BODY CHECK. WILL ENDORSE TO INCOMING SHIFT FOR CONTINUITY OF CARE.
--- NOTE | 2017-06-20 19:15 | NUR ---
MS RN NOTES RECEIVED PTT IN BED, AWAKE, A/O X3 , VERBALLY RESPONSIVE. NO DISTRESS, NO SOB NOTED. RESPIRATION IS EVEN AND UNLABORED. LFA AV SHUNT WITH NO BLEEDING NOTED AT THIS TIME, WITH CLEAN AND INTACT DRESSING. IV SITE ON RAC INTACT AND PATENT , NO S/S OF INFILTRATION NOTED, FLUSHED WITH NS. PT DENIES ANY PAIN OR DISCOMFORT AT THIS TIME. ALL NEEDS ATTENDED AND MET. KEPT COMFORTABLE. CALL LIGHT WITHIN REACH. WILL CONTINUE TO MONITOR. PT FOR DC TO MERGED WITH [facility], EXIT CARE AND DC PAPERS DONE BY DAY SHIFT RN, AWAITING FOR AMBULANCE GAUGE MAKER, PT AWARE.
--- NOTE | 2017-06-20 19:50 | NUR ---
PT STABLE , NO DISTRESS NOR SOB NOTED. DENIES ANY PAIN OR DISCOMFORT AT THIS TIME. PT REFUSED BODY CHECK X 3, RISK AND BENEFITS EXPLAINED. RAC IV IS INTACT AND PATENT, KEPT DUE TO PT WILL RECEIVE IV ATB AT THE SNF, CHARGE NURSE JESUS AWARE. ENDORSED PT ACCORDINGLY TO [facility], UN[address], 2 CREWS AT BEDSIDE, PT TRANSFERRED TO STRETCHER FROM BED SAFELY AND ABLE TO GET IN THE ELEVATOR SAFELY.
[2017-06-20 20:00] VITALS: BP 159/65
[2017-06-21] MEDS ORDERED: EPOETIN ALFA (10,000 UNIT) 10,000 UNIT/ML VIAL SQ SCH (10:00)
== END 2017-06-20 20:10 | DRG 193 ==
LOC: ER 18:50 → TELE 22:10 → MED 06-19 09:25
PROVIDERS: ADMIT Nurse Practitioner Acute Care; ATTEND Nurse Practitioner Acute Care
PROC: 5A1D70Z Performance of Urinary Filtration, Intermittent, Less than 6 Hours Per Day (ICD-10-PCS; principal; 2017-06-19)
DX: J15.9 Unspecified bacterial pneumonia (principal); N18.6 End stage renal disease; E44.0 Moderate protein-calorie malnutrition; I12.0 Hypertensive chronic kidney disease with stage 5 chronic kidney disease or end stage renal disease; I48.91 Unspecified atrial fibrillation; E83.39 Other disorders of phosphorus metabolism; E83.9 Disorder of mineral metabolism, unspecified; E87.70 Fluid overload, unspecified; E88.09 Other disorders of plasma-protein metabolism, not elsewhere classified; J44.0 Chronic obstructive pulmonary disease with (acute) lower respiratory infection; J44.1 Chronic obstructive pulmonary disease with (acute) exacerbation; Z68.1 Body mass index [BMI] 19.9 or less, adult; D63.8 Anemia in other chronic diseases classified elsewhere; I25.10 Atherosclerotic heart disease of native coronary artery without angina pectoris; Z99.2 Dependence on renal dialysis; Z87.891 Personal history of nicotine dependence; R73.9 Hyperglycemia, unspecified
CPT/HCPCS: 36415; 71045-TC; 80048-TC; 80061-TC; 80076-TC; 80202-TC; 83605-TC; 83735-TC; 84100-TC; 84443-TC; 84484-TC; 85025-TC; 85730-TC; 87040-TC; 87081-TC; 90935-TC; A4606; J0360; J0692; J0885; J3370; J7030; J7060; Z7610